=== PATIENT | male | born 1985 | race Caucasian/White ===

== ENCOUNTER 2021-02-10 18:02 | Emergency (ER) | payer MEDICAID ==
[~2021-02-10] VITALS: Ht 162.6 cm; Wt 93.4 kg
--- NOTE | 2021-02-10 18:02 | NUR ---
PT BIBRA 79 FROM HOME C/O ETOH AND ANXIETY ATTACK. PT IS AAOX4, NOT IN RESPIRATORY DISTRESS, HOOKED TO ANAESTHETIC TECHNICIAN, KEPT RESTED AND COMFORTABLE. WILL CONTINUE TO MONITOR.
[2021-02-10] MEDS ORDERED: ONDANSETRON HCL/PF 4 MG/2 ML VIAL ONE (19:18)
[2021-02-10] MEDS ORDERED: LORAZEPAM INJ 2 MG/ML VIAL ONE (19:19)
[2021-02-10] MEDS ORDERED: LORAZEPAM INJ 2 MG/ML VIAL IV ONE (19:30)
[2021-02-10] MEDS ORDERED: IV NS 0.9% 1,000 ML BAG IV ONE (19:30)
[2021-02-10] MEDS ORDERED: ONDANSETRON HCL/PF 4 MG/2 ML VIAL IVP ONE (19:30)
--- NOTE | 2021-02-10 21:30 | NUR ---
PATIENT AMBUALTED TO RESTROOM AND RETURNED TO BED. PATIENT PROVIDED WITH PO FUILDS TOELRATING WELL. VSS. WILL CONTINUE MONITOR.
--- NOTE | 2021-02-10 22:16 | NUR ---
Patient discharged to home in stable condition. Written and verbal after care instructions given. Patient verbalizes understanding of instruction. Mother picked up patient.
[2021-02-10 22:24] VITALS: BP 139/76
== END 2021-02-10 22:25 | disposition home or self-care (01) ==
LOC: ER 18:06
DX: F10.129 Alcohol abuse with intoxication, unspecified (principal); F41.9 Anxiety disorder, unspecified; Z98.890 Other specified postprocedural states; Y90.9 Presence of alcohol in blood, level not specified
CPT/HCPCS: 96361; 96374; 96375; 99284; J2060; J2405; J7030